=== PATIENT | female | born 1985 | race Caucasian/White ===

== ENCOUNTER 2016-07-14 23:13 | Emergency (ER) | payer OTHER ==
[~2016-07-14] VITALS: Ht 162.6 cm; Wt 83.4 kg
[2016-07-14] MEDS ORDERED: ATIVAN1 MG PO (23:32)
[2016-07-15] MEDS ORDERED: EMVERM100 MG PO (00:21)
[2016-07-15 00:45] VITALS: BP 127/86
== END 2016-07-15 00:47 | disposition home or self-care (01) | DRG 392 ==
LOC: ED 23:13
DX: B80 Enterobiasis (principal)